=== PATIENT | male | born 1935 | race Caucasian/White ===

== ENCOUNTER 2018-12-06 19:17 | Emergency (ER) | payer MEDICARE, BC ==
--- NOTE | 2018-12-06 19:52 | EDM.PDOC ---
ED HPI GENERAL MEDICAL PROBLEM - General Chief Complaint: General Stated Complaint: fall, increased gabapentin administration Time Seen by Provider: 12/06/18 19:25 Source of Information: Reports: Patient, RN Notes Reviewed History Limitations: Reports: No Limitations - History of Present Illness INITIAL COMMENTS - FREE TEXT/NARRATIVE: Patient is a 83-year-old gentleman who was given 600 mg of gabapentin which he only takes normally 100 mg per day complaining of lightheadedness fell hitting the posterior aspect of the head therefore trauma to the head and patient is on a blood thinner. We ordered CT of the head which was negative Onset: Today Duration: Hour(s):, Constant Location: Reports: Head Severity: Mild Improves with: Reports: None Worsens with: Reports: None Context: Reports: Trauma Associated Symptoms: Reports: No Other Symptoms Lower Back Pain Score (Numeric/FACES): 3 - Related Data Allergies Allergy/AdvReac Type Severity Reaction Status Date / Time No Known Allergies Allergy Verified 12/06/18 20:02 Home Meds: Home Meds Abatacept [Orencia] 125 mg SQ Q7D 11/09/17 [History] Acetaminophen 1,000 mg PO TID PRN 11/09/17 [History] Apixaban [Eliquis] 2.5 mg PO BID 11/09/17 [History] Diclofen Sod/Kinesiology Tape [Diclo Gel 1%-Xrylix Sheet Kit] 1 each TP ASDIRECTED PRN 11/09/17 [History] Docusate Sodium [Colace] 100 mg PO BID 11/09/17 [History] Ferrous Sulfate 325 mg PO DAILY 11/09/17 [History] Finasteride 5 mg PO DAILY@1700 11/09/17 [History] Midodrine 5 mg PO TID PRN 11/09/17 [History] Multivit &Minerals/Ferrous Fum [Multivitamin Liquid] 30 ml PO DAILY 11/09/17 [ History] Omeprazole 20 mg PO DAILY 11/09/17 [History] Propylene Glycol/PEG 400/Pf [Systane 0.3-0.4% Eye Drops] 1 each EYERT BID [History] Tamsulosin [Tamsulosin 24 Hr] 0.8 mg PO DAILY@1700 11/09/17 [History] Tiotropium [Spiriva] 18 mcg INH DAILY 11/09/17 [History] Vitamin B Complex 1 each PO DAILY 11/09/17 [History] Carboxymethylcellulose/Lytes [[place]-Stir Oral [place]] 2 spray TOP ASDIRECTED PRN [History] Gabapentin [Neurontin] 100 mg PO TID 12/06/18 [History] Hydrocodone/Acetaminophen [Hydrocodon-Acetaminophen 5-325] 1 tab PO QID [History] Mirtazapine 30 mg PO DAILY@1700 12/06/18 [History] Polyethylene Glycol 3350 [MiraLAX] 17 gm PO DAILY 12/06/18 [History] Past Medical History HEENT History: Reports: Hard of Hearing Cardiovascular History: Reports: Afib, Aneurysm, High Cholesterol, PVD Respiratory History: Reports: COPD Genitourinary History: Reports: Renal Calculus Musculoskeletal History: Reports: Arthritis, Back Pain, Chronic, Other (See Below) Other Musculoskeletal History: DISC DEGENERATION Hematologic History: Reports: Anemia - Infectious Disease History Infectious Disease History: Reports: Chicken Pox, Influenza, Measles - Past Surgical History GI Surgical History: Reports: Colonoscopy Social & Family History - Caffeine Use Caffeine Use: Reports: Coffee ED ROS GENERAL - Review of Systems Review Of Systems: See Below Constitutional: Reports: Weakness HEENT: Reports: No Symptoms Respiratory: Reports: Cough Cardiovascular: Reports: Blood Pressure Problem, Lightheadedness Endocrine: Reports: No Symptoms GI/Abdominal: Reports: No Symptoms : Reports: No Symptoms Musculoskeletal: Reports: No Symptoms Skin: Reports: No Symptoms Neurological: Reports: No Symptoms Psychiatric: Reports: No Symptoms Hematologic/Lymphatic: Reports: No Symptoms Immunologic: Reports: No Symptoms ED EXAM, GENERAL - Physical Exam Exam: See Below Exam Limited By: No Limitations General Appearance: Alert, WD/WN, No Apparent Distress Ears: Normal External Exam, Normal Canal, Hearing Grossly Normal, Normal TMs Ear Exam: Bilateral Ear: Auricle Normal, Canal Normal, TM normal Nose: Normal Inspection, Normal Mucosa, No Blood Throat/Mouth: Normal Inspection, Normal Lips, Normal Teeth, Normal Gums, Normal Oropharynx, Normal Voice, No Airway Compromise Head: Atraumatic, Normocephalic Neck: Normal Inspection, Supple, Non-Tender, Full Range of Motion Respiratory/Chest: No Respiratory Distress, Lungs Clear, Normal Breath Sounds, No Accessory Muscle Use, Chest Non-Tender Cardiovascular: Normal Peripheral Pulses, Regular Rate, Rhythm, No Edema, No Gallop, No JVD, No Murmur, No Rub GI/Abdominal: Normal Bowel Sounds, Soft, Non-Tender, No Organomegaly, No Distention, No Abnormal Bruit, No Mass (Male) Exam: Deferred Rectal (Males) Exam: Deferred Back Exam: Normal Inspection, Full Range of Motion, NT Extremities: Normal Inspection, Normal Range of Motion, Non-Tender, Normal Capillary Refill, No Pedal Edema Neurological: Alert, Oriented, CN II-XII Intact, Normal Cognition, Normal Gait, Normal Reflexes, No Motor/Sensory Deficits Psychiatric: Normal Affect, Normal Mood Skin Exam: Warm, Dry, Intact, Normal Color, No Rash Lymphatic: No Adenopathy Course - Vital Signs Last Recorded V/S: Last Vital Signs Temp 98.4 F 12/06/18 19:21 Pulse 88 12/06/18 21:19 Resp 16 12/06/18 19:21 BP 139/92 H 12/06/18 21:19 Pulse Ox 94 L 12/06/18 20:50 - Orders/Labs/Meds Labs: Laboratory Tests 12/06/18 12/06/18 Range/Units 19:49 19:49 WBC 7.4 (4.0-10.2) K/uL RBC 3.63 L (4.33-5.41) M/uL Hgb 11.0 L (13.1-16.8) g/dL Hct 34.6 L (39.0-49.0) % MCV 95.3 (84.0-98.0) fL MCH 30.3 (28.2-33.3) pg MCHC 31.8 (31.7-36.0) g/dL RDW 14.3 H (11.2-14.1) % Plt Count 190 (150-350) K/uL Neut % (Auto) 72.6 (45.0-80.0) % Lymph % (Auto) 21.2 (10.0-50.0) % [place] % (Auto) 3.5 (2.0-14.0) % Eos % (Auto) 2.4 (0.0-5.0) % Baso % (Auto) 0.3 (0.0-2.0) % Neut # (Auto) 5.33 (1.40-7.00) K/uL Lymph # (Auto) 1.56 (0.50-3.50) K/uL [place] # (Auto) 0.26 (0.00-1.00) K/uL Eos # (Auto) 0.18 (0.00-0.50) K/uL Baso # (Auto) 0.02 (0.00-0.20) K/uL Sodium 147 H (136-145) mmol/L Potassium 3.7 (3.5-5.1) mmol/L Chloride 110 H (98-107) mmol/L Carbon Dioxide 29.1 (21.0-32.0) mmol/L BUN 31 H (7-18) mg/dL Creatinine 2.09 H (0.51-1.17) mg/dL Est Cr Clr Drug Dosing TNP Estimated GFR (MDRD) 31 mL/min Glucose 143 H (74-106) mg/dL Calcium 11.4 H (8.5-10.1) mg/dL Total Bilirubin 0.5 (0.2-1.0) mg/dL AST 55 H (15-37) U/L ALT 73 (12-78) U/L Alkaline Phosphatase 116 (46-116) IU/L Total Protein 6.4 (6.4-8.2) g/dL Albumin 2.8 L (3.4-5.0) g/dL Meds: Medications Discontinued Medications Generic Name Dose Route Start Last Admin Trade Name Freq PRN Reason Stop Dose Admin Sodium Chloride 1,000 mls @ 999 mls/hr 12/06/18 20:30 12/06/18 20:22 Normal Saline IV 999 mls/hr ASDIRECTED AJITH Administration Sodium Chloride 10 ml 12/06/18 20:17 12/06/18 20:26 Saline Flush FLUSH 10 ml ASDIRECTED PRN Administration Keep Vein Open Departure - Departure Time of Disposition: 20:21 Disposition: Home, Self-Care 01 Condition: Good Clinical Impression: Closed head injury Qualifiers: Encounter type: initial encounter Qualified Code(s): S09.90XA - Unspecified injury of head, initial encounter - Discharge Information *PRESCRIPTION DRUG MONITORING PROGRAM REVIEWED*: No *COPY OF PRESCRIPTION DRUG MONITORING REPORT IN PATIENT STEPHANI: No Referrals: Lizeth Prado PA [Primary Care Provider] - Forms: ED Department Discharge Care Plan Goals: Patient at this time will be evaluated with a CT of the head secondary to being on blood thinners and also trauma to the head. CT appeared negative at this time I will give him IV fluids and send him home with his regular medications
[2018-12-06 20:07] LABS: CHLORIDE,CL 110 mmol/L (98-107); SODIUM,NA 147 mmol/L (136-145)
[2018-12-06] MEDS ORDERED: Sodium Chloride 0.9% 10 ML Syringe FLUSH PRN (20:17)
[2018-12-06] MEDS ORDERED: Sodium Chloride 0.9% 1,000 ML IV SCH (20:30)
== END 2018-12-06 21:40 | disposition home or self-care (01) ==
LOC: LL.ED 19:17
DX: S09.90XA Unspecified injury of head, initial encounter (principal); I48.91 Unspecified atrial fibrillation; J44.9 Chronic obstructive pulmonary disease, unspecified; Z79.01 Long term (current) use of anticoagulants; Z79.899 Other long term (current) drug therapy; W19.XXXA Unspecified fall, initial encounter
CPT/HCPCS: 36415; 70450; 80053; 85025; 96360; 99285-25; J7030

== ENCOUNTER 2020-03-23 17:04 | Observation (INO) | payer MEDICARE, BC ==
[2020-03-23] MEDS ORDERED: Ondansetron 4 MG/2 ML SDV IVPUSH ONE (17:23)
[2020-03-23] MEDS: Sodium Chloride 0.9% 10 ML Syringe FLUSH PRN ×3 (17:28→19:40)
[2020-03-23 17:46] LABS: CHLORIDE,CL 105 mmol/L (98-107); SODIUM,NA 142 mmol/L (136-145)
[2020-03-23] MEDS ORDERED: Morphine 2 MG/ML SYRINGE IVPUSH ONE (18:01)
[2020-03-23] MEDS ORDERED: Iopamidol 612 MG/ML 100 ML Bottle ONE (18:01)
[2020-03-23] MEDS ORDERED: Sodium Chloride 0.9% 1,000 ML IV ONE (18:02)
--- NOTE | 2020-03-23 18:08 | EDM.PDOC ---
ED HPI GENERAL MEDICAL PROBLEM - General Chief Complaint: Abdominal Pain Stated Complaint: abdominal pain Time Seen by Provider: 03/23/20 17:40 Source of Information: Reports: Patient History Limitations: Reports: No Limitations - History of Present Illness INITIAL COMMENTS - FREE TEXT/NARRATIVE: Patient comes from [facility] with complaint of RLQ abdominal pain. Several episodes emesis. Feeling cold/some chills. No fever. No bowel changes. Hx of constipation in past. Has had the pain before in same area but says "not as bed as today". Ranks pain as 8-9/10. Has slow stream when urinating but this is not new. No acute urinary changes reported. Denies HEENT/Resp/CV changes. No headache or body aches. No neuro changes. Hx of AAA and iliac aneurysm. Routine Covid test performed yesterday. No results yet available. abdomen Pain Score (Numeric/FACES): 9 - Related Data Allergies Allergy/AdvReac Type Severity Reaction Status Date / Time No Known Allergies Allergy Verified 03/23/20 17:46 Home Meds: Home Meds Abatacept [Orencia] 125 mg SQ Q7D 11/09/17 [History] Acetaminophen 1,000 mg PO TID PRN 11/09/17 [History] Apixaban [Eliquis] 2.5 mg PO BID 11/09/17 [History] Diclofenac/Kinesiology Tape [Diclo Gel 1%-Xrylix Sheet Kit] 1 each TP ASDIRECTED PRN 11/09/17 [History] Docusate Sodium [Colace] 100 mg PO BID 11/09/17 [History] Ferrous Sulfate 325 mg PO DAILY@12 11/09/17 [History] Finasteride 5 mg PO DAILY@169911/09/17 [History] Omeprazole 20 mg PO DAILY 11/09/17 [History] Propylene Glycol/PEG 400/Pf [Systane 0.3-0.4% Eye Drops] 1 each EYEBOTH TID 11/09/17 [History] Tamsulosin [Tamsulosin 24 Hr] 0.8 mg PO DAILY@169911/09/17 [History] Tiotropium [Spiriva] 18 mcg INH DAILY 11/09/17 [History] Vitamin B Complex 1 each PO DAILY 11/09/17 [History] Carboxymethylcellulose/Lytes [[place]-Stir Oral [place]] 2 spray TOP ASDIRECTED PRN 12/06/18 [History] Gabapentin [Neurontin] 100 mg PO DAILY 12/06/18 [History] Hydrocodone/Acetaminophen [Hydrocodon-Acetaminophen 5-325] 1 tab PO Q6HR PRN 12/06/18 [History] Buprenorphine [Butrans] 1 each TD WEEKLY 03/23/20 [History] Hydrocodone/Acetaminophen [Hydrocodone-Acetamin 5-325 mg] 1 each PO BID 03/23/20 [History] Mirtazapine [Remeron] 15 mg PO DAILY 03/23/20 [History] Multivitamin [Multi-Vitamin Daily] 1 each PO DAILY 03/23/20 [History] Sertraline [Zoloft] 100 mg PO DAILY 03/23/20 [History] Past Medical History HEENT History: Reports: Hard of Hearing 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 Abdominal aortic aneursym without rupture. Aneursym of iliac artery. Hypotension Respiratory History: Reports: COPD Gastrointestinal History: Reports: Chronic Constipation, Colon Polyp, GERD, Other (See Below) Other Gastrointestinal History: dysphagia. 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 Genitourinary History: Reports: Renal Calculus Other Genitourinary History: Overactive bladder Musculoskeletal History: Reports: Arthritis, Back Pain, Chronic, Other (See Below) Other Musculoskeletal History: DISC DEGENERATION Psychiatric History: Reports: Other (See Below) Other Psychiatric History: single episode major depressive disorder Endocrine/Metabolic History: Reports: Hypothyroidism Hematologic History: Reports: Anemia Dermatologic History: Reports: Other (See Below) Other Dermatologic History: Dermatitis - Infectious Disease History Infectious Disease History: Reports: Chicken Pox, Influenza, Measles - Past Surgical History GI Surgical History: Reports: Colonoscopy Social & Family History - Tobacco Use Tobacco Use Status *Q: Former Tobacco User Years of Tobacco use: 50 Packs/Tins Daily: 1 Used Tobacco, but Quit: Yes Month/Year Tobacco Last Used: unsure Second Hand Smoke Exposure: No - Caffeine Use Caffeine Use: Reports: None - Alcohol Use Days Per Week of Alcohol Use: 7 Number of Drinks Per Day: 2 Total Drinks Per Week: 14 - Recreational Drug Use Recreational Drug Use: No ED ROS GENERAL - Review of Systems Review Of Systems: Comprehensive ROS is negative, except as noted in HPI. ED EXAM, GENERAL - Physical Exam Exam: See Below Exam Limited By: No Limitations General Appearance: Alert, WD/WN, No Apparent Distress Eye Exam: Bilateral Eye: EOMI, PERRL Ears: Hearing Loss Nose: No: Nasal Deformity, Nasal Swelling, Nasal Drainage Throat/Mouth: Normal Lips, Normal Voice, No Airway Compromise Head: Atraumatic, Normocephalic Neck: Supple Respiratory/Chest: No Respiratory Distress, Lungs Clear, No Accessory Muscle Use, Chest Non-Tender, Decreased Breath Sounds (throughout) Cardiovascular: No Edema, Irregularly Irregular GI/Abdominal: Soft, No Distention, No Abnormal Bruit, Other (some tenderness over entire abdomen, more focused discomfort RLQ). No: Guarding, Rigid, Rebound (Male) Exam: Deferred Rectal (Males) Exam: Deferred Back Exam: No: Muscle Spasm Extremities: Non-Tender, No Pedal Edema, Normal Capillary Refill Neurological: Alert, Oriented, Other (equal tone/strength bilat) Psychiatric: Normal Affect, Normal Mood Skin Exam: Warm, Dry, Intact, Normal Color Course - Vital Signs Last Recorded V/S: Last Vital Signs Temp 36.7 C 03/23/20 17:06 Pulse 105 H 03/23/20 19:35 Resp 23 H 03/23/20 19:35 BP 140/87 03/23/20 19:35 Pulse Ox 97 03/23/20 19:35 - Orders/Labs/Meds Orders: Active Orders 24 hr Category Date Time Status Abdomen Pelvis w Cont [CT] Stat Exams 03/23/20 18:01 Taken Abdomen Series w Chest 1V [CR] Stat Exams 03/23/20 17:18 Taken Sodium Chloride 0.9% [Normal Saline] 1,000 ml Med 03/23/20 18:02 Active IV .BOLUS Sodium Chloride 0.9% [Saline Flush] Med 03/23/20 17:24 Active 10 ml FLUSH ASDIRECTED PRN Saline Lock Insert [OM.PC] Routine Oth 03/23/20 17:24 Ordered Medication Orders Sodium Chloride (Normal Saline) 1,000 mls @ 250 mls/hr IV .BOLUS ONE Stop: 03/23/20 22:01 Last Admin: 03/23/20 18:48 Dose: 250 mls/hr Documented by: SAMIRA Sodium Chloride (Saline Flush) 10 ml FLUSH ASDIRECTED PRN PRN Reason: Keep Vein Open Last Admin: 03/23/20 19:40 Dose: 10 ml Documented by: Admin: 03/23/20 18:53 Dose: 10 ml Documented by: Admin: 03/23/20 17:28 Dose: 10 ml Documented by: SAMIRA Labs: Laboratory Tests 03/23/20 03/23/20 03/23/20 Range/Units 17:15 17:15 17:15 WBC 13.8 H (4.0-10.2) K/uL RBC 4.07 L (4.33-5.41) M/uL Hgb 12.1 L (13.1-16.8) g/dL Hct 37.6 L (39.0-49.0) % MCV 92.4 D (84.0-98.0) fL MCH 29.7 (28.2-33.3) pg MCHC 32.2 (31.7-36.0) g/dL RDW 14.3 H (11.2-14.1) % Plt Count 190 (150-350) K/uL Neut % (Auto) 90.6 H (45.0-80.0) % Lymph % (Auto) 5.5 L (10.0-50.0) % [place] % (Auto) 3.9 (2.0-14.0) % Eos % (Auto) 0.0 (0.0-5.0) % Baso % (Auto) 0.0 (0.0-2.0) % Neut # (Auto) 12.48 H (1.40-7.00) K/uL Lymph # (Auto) 0.76 (0.50-3.50) K/uL [place] # (Auto) 0.54 (0.00-1.00) K/uL Eos # (Auto) 0.00 (0.00-0.50) K/uL Baso # (Auto) 0.00 (0.00-0.20) K/uL Sodium 142 (136-145) mmol/L Potassium 3.8 (3.5-5.1) mmol/L Chloride 105 (98-107) mmol/L Carbon Dioxide 29.4 (21.0-32.0) mmol/L BUN 19 H (7-18) mg/dL Creatinine 1.08 (0.51-1.17) mg/dL Est Cr Clr Drug Dosing 37.07 mL/min Estimated GFR (MDRD) > 60 mL/min Glucose 171 H (74-106) mg/dL Lactic Acid 1.3 (0.4-2.0) mmol/L Calcium 9.0 (8.5-10.1) mg/dL Magnesium 1.9 (1.8-2.4) mg/dL Total Bilirubin 0.7 (0.2-1.0) mg/dL AST 20 (15-37) U/L ALT 16 (12-78) U/L Alkaline Phosphatase 104 (46-116) IU/L Total Protein 6.6 (6.4-8.2) g/dL Albumin 3.0 L (3.4-5.0) g/dL Amylase 46 (25-115) U/L Lipase 31 L (73-393) U/L Specimen Type Urine Color Urine Appearance Urine pH (5.0-9.0) Ur Specific [place] (1.005-1.030) Urine Protein (NEGATIVE) mg/dL Urine Glucose (UA) (NEGATIVE) mg/dL Urine Ketones (NEGATIVE) mg/dL Urine Occult Blood (NEGATIVE) Urine Nitrite (NEGATIVE) Urine Bilirubin (NEGATIVE) Urine Urobilinogen (0.2-1.0) E.U./dL Ur Leukocyte Esterase (NEGATIVE) U Hyaline Cast (Auto) Urine RBC /HPF Urine WBC /HPF Urine Bacteria (NONE TO FEW) /HPF 03/23/20 Range/Units 19:12 WBC (4.0-10.2) K/uL RBC (4.33-5.41) M/uL Hgb (13.1-16.8) g/dL Hct (39.0-49.0) % MCV (84.0-98.0) fL MCH (28.2-33.3) pg MCHC (31.7-36.0) g/dL RDW (11.2-14.1) % Plt Count (150-350) K/uL Neut % (Auto) (45.0-80.0) % Lymph % (Auto) (10.0-50.0) % [place] % (Auto) (2.0-14.0) % Eos % (Auto) (0.0-5.0) % Baso % (Auto) (0.0-2.0) % Neut # (Auto) (1.40-7.00) K/uL Lymph # (Auto) (0.50-3.50) K/uL [place] # (Auto) (0.00-1.00) K/uL Eos # (Auto) (0.00-0.50) K/uL Baso # (Auto) (0.00-0.20) K/uL Sodium (136-145) mmol/L Potassium (3.5-5.1) mmol/L Chloride (98-107) mmol/L Carbon Dioxide (21.0-32.0) mmol/L BUN (7-18) mg/dL Creatinine (0.51-1.17) mg/dL Est Cr Clr Drug Dosing mL/min Estimated GFR (MDRD) mL/min Glucose (74-106) mg/dL Lactic Acid (0.4-2.0) mmol/L Calcium (8.5-10.1) mg/dL Magnesium (1.8-2.4) mg/dL Total Bilirubin (0.2-1.0) mg/dL AST (15-37) U/L ALT (12-78) U/L Alkaline Phosphatase (46-116) IU/L Total Protein (6.4-8.2) g/dL Albumin (3.4-5.0) g/dL Amylase (25-115) U/L Lipase (73-393) U/L Specimen Type Urinvoid Urine Color Dark yellow Urine Appearance Slightly cloudy Urine pH 7.0 (5.0-9.0) Ur Specific [place] 1.015 (1.005-1.030) Urine Protein 100 H (NEGATIVE) mg/dL Urine Glucose (UA) Negative (NEGATIVE) mg/dL Urine Ketones Trace H (NEGATIVE) mg/dL Urine Occult Blood Large H (NEGATIVE) Urine Nitrite Negative (NEGATIVE) Urine Bilirubin Negative (NEGATIVE) Urine Urobilinogen 2.0 H (0.2-1.0) E.U./dL Ur Leukocyte Esterase Negative (NEGATIVE) U Hyaline Cast (Auto) Rare Urine RBC >100 H /HPF Urine WBC Not seen /HPF Urine Bacteria Not seen (NONE TO FEW) /HPF Meds: Medications Generic Name Dose Route Start Last Admin Trade Name Leisa PRN Reason Stop Dose Admin Sodium Chloride 1,000 mls @ 250 mls/hr 03/23/20 18:02 03/23/20 18:48 Normal Saline IV 03/23/20 22:01 250 mls/hr .BOLUS ONE Administration Sodium Chloride 10 ml 03/23/20 17:24 03/23/20 19:40 Saline Flush FLUSH 10 ml ASDIRECTED PRN Administration Keep Vein Open Discontinued Medications Generic Name Dose Route Start Last Admin Trade Name Leisa PRN Reason Stop Dose Admin Iopamidol Confirm 03/23/20 18:01 03/23/20 19:00 Isovue-300 (61%) Administered 03/23/20 18:02 100 ml Dose Administration 100 ml .ROUTE .STK-MED ONE Morphine Sulfate 2 mg 03/23/20 18:01 03/23/20 18:43 Morphine IVPUSH 03/23/20 18:02 2 mg ONETIME ONE Administration Morphine Sulfate 4 mg 03/23/20 19:29 03/23/20 19:38 Morphine IVPUSH 03/23/20 19:30 4 mg ONETIME ONE Administration Ondansetron HCl 4 mg 03/23/20 17:23 03/23/20 17:26 Zofran IVPUSH 03/23/20 17:24 4 mg ONETIME ONE Administration - Radiology Interpretation Free Text/Narrative:: No free air in abdomen. No focal pneumonia/consolidation in lungs. No evidence obstruction. Increased stool RLQ CT Results Date: 03/23/20 CT Results Time: 19:50 (distended stomach, narrowing of lumen of duodenum. Radiology wonders if underlying duodenitis or ulcer disease present in duodenum. Gallstones present but no evidence cholecystitis. Nonobstructing stones bilat kidneys. Small AAA and mild dilatation of right common iliac artery. ) - Re-Assessments/Exams Free Text/Narrative Re-Assessment/Exam: 03/23/20 18:09 mild elevation in WBC. Glucose elevated. Chem overall unremarkable otherwise. Unable to void for UA as of yet. No evidence of acute abdomen on plain films. Given history of previous pain in same area/worsening overall pain will order CT of abdomen and pelvis for further evaluation. NS and MS/Zofran ordered. 03/23/20 20:31 Hematuria noted but no elevated WBCs in UA. CT results as noted above. Patient rechecked after Radiology called with results and patient did not complain of any significant discomfort with palpation of epigastric area/RUQ. Continues to have more pain in RLQ. Only finding there was some increased stool on plain films/CT. He did say that pain increases after eating, which is also consistent with constipation. Patient does have some tachycardia noted with rate around 110-120. [facility] says that he usually runs pulse rates under 100. He does have history of Afib. After receiving MS O2 sats decreased and O2 via NC initiated. Uncertain if patient's current complaints can be completely be explained by constipation. Cannot rule out viral syndrome causing GI upset/nausea/emesis/abd discomfort. Patient also appears to have an ongoing issue with apparent duodenitis vs ulcer given the CT findings with associated stomach distension. Will admit observation and see if RLQ pain improves s/p Mag Citrate. Will also try to schedule RUQ US study tomorrow for better evaluation of GB and surrounding area. H.Pylori testing requested. Protonix IV. May need referral to GI for further evaluation. Patient agreeable with plan. Departure - Departure Time of Disposition: 20:48 Disposition: Refer to Observation Condition: Good Clinical Impression: Right lower quadrant abdominal pain - Discharge Information *PRESCRIPTION DRUG MONITORING PROGRAM REVIEWED*: Not Applicable *COPY OF PRESCRIPTION DRUG MONITORING REPORT IN PATIENT STEPHANI: Not Applicable Sepsis Event Note (ED) - Evaluation Sepsis Screening Result: Sepsis Risk - Focused Exam Vital Signs: Vital Signs Temp Pulse Resp BP Pulse Ox 03/23/20 19:35 105 H 23 H 140/87 97 03/23/20 18:35 104 H 24 H 143/66 H 92 L 03/23/20 18:02 114 H 24 H 143/50 H 92 L 03/23/20 17:47 114 H 27 H 143/61 H 91 L 03/23/20 17:32 111 H 21 H 156/91 H 91 L 03/23/20 17:17 87 21 H 148/80 H 90 L 03/23/20 17:06 36.7 C 114 H 20 140/78 92 L 03/23/20 17:04 93 20 158/77 H 93 L - Problem List & Annotations (1) Right lower quadrant abdominal pain SNOMED Code(s): 977591994 Code(s): R10.31 - RIGHT LOWER QUADRANT PAIN Status: Acute Priority: High Current Visit: Yes Annotation/Comment:: Has had this same pain on/off before. This episode most severe. Pain worsens after eating. Only finding on CT and plain films in area was increased stool. Patient has history of chronic constipation. Note incidental findings of duodenitis vs ulcer, duodenal narrowing with gastric distension, along with gallbladder stones on the CT. Patient denies RUQ discomfort. US study requested for RUQ tomorrow. H.Pylori testing requested. Will see if any change in pain complaint s/p Mag Citrate. Anticipate patient will need close follow up by PCP and possible referral to GI given the above changes. (2) Chronic constipation SNOMED Code(s): 855746626 Code(s): K59.09 - OTHER CONSTIPATION Status: Chronic Priority: High Current Visit: Yes Annotation/Comment:: RLQ pain may be related to patient's chronic constipation. Chronic opiod use. Will see if any change in pain s/p Mag Citrate. (3) History of kidney stones SNOMED Code(s): 416398675 Code(s): Z87.442 - PERSONAL HISTORY OF URINARY CALCULI Status: Chronic Priority: Low Current Visit: Yes Annotation/Comment:: Patient has nonobstructing stones in kidney per CT. Hematuria noted with UA. No ureteral stones noted on scan. (4) Afib SNOMED Code(s): 87384508 Code(s): I48.91 - UNSPECIFIED ATRIAL FIBRILLATION Status: Chronic Priority: Medium Current Visit: Yes Annotation/Comment:: Hx Afib. On Eliquis. Afib with RVR noted on monitor tonight. Patient denies chest pain/sob/palpitations (5) Aneurysm SNOMED Code(s): 439927391 Code(s): I72.9 - ANEURYSM OF UNSPECIFIED SITE Status: Chronic Priority: Low Current Visit: No Annotation/Comment:: History small AAA and right common iliac artery. Stable on CT (6) PVD (peripheral vascular disease) SNOMED Code(s): 655578063 Code(s): I73.9 - PERIPHERAL VASCULAR DISEASE, UNSPECIFIED Status: Chronic Priority: Low Current Visit: No (7) COPD (chronic obstructive pulmonary disease) SNOMED Code(s): 04547858 Code(s): J44.9 - CHRONIC OBSTRUCTIVE PULMONARY DISEASE, UNSPECIFIED Status: Chronic Priority: Low Current Visit: No Annotation/Comment:: stable per history (8) GERD (gastroesophageal reflux disease) SNOMED Code(s): 411934478 Code(s): K21.9 - GASTRO-ESOPHAGEAL REFLUX DISEASE WITHOUT ESOPHAGITIS Status: Chronic Priority: Low Current Visit: No Annotation/Comment:: stable per history Qualifiers: Esophagitis presence: esophagitis presence not specified Qualified Code(s): K21.9 - Gastro-esophageal reflux disease without esophagitis (9) Dysphagia SNOMED Code(s): 38029552, 438073553 Code(s): R13.10 - DYSPHAGIA, UNSPECIFIED Status: Chronic Priority: Low Current Visit: No Annotation/Comment:: stable per history Qualifiers: Dysphagia type: unspecified Qualified Code(s): R13.10 - Dysphagia, unspecified (10) Chronic back pain SNOMED Code(s): 651867621 Code(s): M54.9 - DORSALGIA, UNSPECIFIED; G89.29 - OTHER CHRONIC PAIN Status: Chronic Priority: Low Current Visit: Yes Annotation/Comment:: Chronic back pain/DDD/arthritis. Daily opiods/Gabapentin/topical med for pain control. Qualifiers: Back pain location: back pain in unspecified location Back pain laterality: unspecified Qualified Code(s): M54.9 - Dorsalgia, unspecified; G89.29 - Other chronic pain - Problem List Review Problem List Initiated/Reviewed/Updated: Yes - My Orders Last 24 Hours: My Active Orders 03/23/20 17:18 Abdomen Series w Chest 1V [CR] Stat 03/23/20 17:24 Sodium Chloride 0.9% [Saline Flush] 10 ml FLUSH ASDIRECTED PRN Saline Lock Insert [OM.PC] Routine 03/23/20 18:01 Abdomen Pelvis w Cont [CT] Stat 03/23/20 18:02 Sodium Chloride 0.9% [Normal Saline] 1,000 ml IV .BOLUS - Assessment/Plan Admission H&P: Please use this note as an admission H&P Last 24 Hours: My Active Orders 03/23/20 17:18 Abdomen Series w Chest 1V [CR] Stat 03/23/20 17:24 Sodium Chloride 0.9% [Saline Flush] 10 ml FLUSH ASDIRECTED PRN Saline Lock Insert [OM.PC] Routine 03/23/20 18:01 Abdomen Pelvis w Cont [CT] Stat 03/23/20 18:02 Sodium Chloride 0.9% [Normal Saline] 1,000 ml IV .BOLUS Assessment:: as above. STable and suitable for general supervision Plan: as above. to assume care in AM.
[2020-03-23] MEDS ORDERED: Morphine 4 MG/ML Syringe IVPUSH ONE (19:29)
[2020-03-23] MEDS ORDERED: Diltiazem 120 MG Cap.CD PO ONE (20:43)
[2020-03-23] MEDS ORDERED: Pantoprazole 40 MG Vial IVPUSH SCH (21:00)
[2020-03-23] MEDS ORDERED: Ondansetron 4 MG/2 ML SDV IVPUSH PRN (21:07)
[2020-03-23] MEDS ORDERED: [UNRECOGNIZED DRUG - MIXTURE] TP PRN (21:15)
[2020-03-23] MEDS ORDERED: BUPRENORPHINE TD SCH (21:15)
[2020-03-23] MEDS ORDERED: Magnesium Citrate Solution 296 ML Bottle PO ONE (21:15)
[2020-03-23] MEDS ORDERED: Acetaminophen 500 MG Tab PO PRN (21:15)
[2020-03-23] MEDS ORDERED: Acetaminophen/HYDROcodone 325-5 MG Tab PO PRN (21:15)
[2020-03-23] MEDS ORDERED: Sodium Chloride 0.9% 1,000 ML IV SCH (21:15)
[2020-03-24 08:00] LABS: CHLORIDE,CL 108 mmol/L (98-107); SODIUM,NA 144 mmol/L (136-145)
[2020-03-24] MEDS ORDERED: Docusate Sodium 100 MG Cap PO SCH (08:00)
[2020-03-24] MEDS ORDERED: Gabapentin 100 MG Cap PO SCH (08:00)
[2020-03-24] MEDS ORDERED: Mirtazapine 15 MG Tab PO SCH (08:00)
[2020-03-24] MEDS ORDERED: Tiotropium Inhaler 18 MCG Inhalation Powder Cap Kit of 5 INH SCH (08:00)
[2020-03-24] MEDS ORDERED: Acetaminophen/HYDROcodone 325-5 MG Tab PO SCH (08:00)
[2020-03-24] MEDS ORDERED: Sertraline 50 MG Tab PO SCH (08:00)
[2020-03-24] MEDS ORDERED: Apixaban 2.5 MG Tab PO SCH (08:00)
--- NOTE | 2020-03-24 08:58 | PCM.DCSUM1 ---
Discharge Summary - Hospital Course Brief History: Patient admitted for observation after presenting to ER with right lower quadrant pain. History of similar RLQ pain previously, but not as severe. Diagnosis: Stroke: No - Discharge Data Discharge Date: 03/24/20 Discharge Disposition: DC/Tfer to Acute Hospital 02 Condition: Good - Referral to Home Health Primary Care Physician: PCP None - Discharge Diagnosis/Problem(s) (1) Right lower quadrant abdominal pain SNOMED Code(s): 290132710 ICD Code: R10.31 - RIGHT LOWER QUADRANT PAIN Status: Acute Priority: High Current Visit: Yes Problem Details: Has had this same pain on/off before. This episode most severe. Pain worsens after eating. Only finding on CT and plain films in RLQ area was increased stool. Patient has history of chronic constipation. Note incidental findings of duodenitis vs ulcer, duodenal narrowing with gastric distension, along with gallbladder stones on the CT. Patient denies RUQ discomfort. US study requested for RUQ this morning. H.Pylori testing requested. Admitted observation. Given Mag Citrate. (2) Duodenal stricture SNOMED Code(s): 11157223 ICD Code: K31.5 - OBSTRUCTION OF DUODENUM Status: Acute Priority: High Current Visit: Yes Problem Details: Stricture noted on CT. Gastric distension. (3) Gallstones SNOMED Code(s): 703563635 ICD Code: K80.20 - CALCULUS OF GALLBLADDER W/O CHOLECYSTITIS W/O OBSTRUCTION Status: Chronic Priority: Medium Current Visit: Yes Problem Details: gallstones noted on CT. No obstruction or evidence cholecystitis per Radiology (4) Chronic constipation SNOMED Code(s): 404435635 ICD Code: K59.09 - OTHER CONSTIPATION Status: Chronic Priority: High Current Visit: Yes Problem Details: RLQ pain may be related to patient's chronic constipation. Chronic opiod use. (5) History of kidney stones SNOMED Code(s): 312961810 ICD Code: Z87.442 - PERSONAL HISTORY OF URINARY CALCULI Status: Chronic Priority: Low Current Visit: Yes Problem Details: Patient has nonobstructing stones in kidney per CT. Hematuria noted with UA. No ureteral stones noted on scan. (6) Afib SNOMED Code(s): 08050746 ICD Code: I48.91 - UNSPECIFIED ATRIAL FIBRILLATION Status: Chronic Priority: Medium Current Visit: Yes Problem Details: Hx Afib. On Eliquis. Afib with RVR noted on monitor tonight. Patient denies chest pain/sob/palpitations. 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 Stable on CT (8) PVD (peripheral vascular disease) SNOMED Code(s): 033814978 ICD Code: I73.9 - PERIPHERAL VASCULAR DISEASE, UNSPECIFIED Status: Chronic Priority: Low Current Visit: No (9) COPD (chronic obstructive pulmonary disease) SNOMED Code(s): 42497624 ICD Code: J44.9 - CHRONIC OBSTRUCTIVE PULMONARY DISEASE, UNSPECIFIED Status: Chronic Priority: Low Current Visit: No Problem Details: stable per history (10) GERD (gastroesophageal reflux disease) SNOMED Code(s): 786911769 ICD Code: K21.9 - GASTRO-ESOPHAGEAL REFLUX DISEASE WITHOUT ESOPHAGITIS Status: Chronic Priority: Low Current Visit: No Problem Details: stable per history Qualifiers: Esophagitis presence: esophagitis presence not specified Qualified Code(s): K21.9 - Gastro-esophageal reflux disease without esophagitis (11) Dysphagia SNOMED Code(s): 08483205, 110065762 ICD Code: R13.10 - DYSPHAGIA, UNSPECIFIED Status: Chronic Priority: Low Current Visit: No Problem Details: stable per history Qualifiers: Dysphagia type: unspecified Qualified Code(s): R13.10 - Dysphagia, unspecified (12) Chronic back pain SNOMED Code(s): 547663660 ICD Code: M54.9 - DORSALGIA, UNSPECIFIED; G89.29 - OTHER CHRONIC PAIN Status: Chronic Priority: Low Current Visit: Yes Problem Details: Chronic back pain/DDD/arthritis. Daily opiods/Gabapentin/topical med for pain control. Qualifiers: Back pain location: back pain in unspecified location Back pain laterality: unspecified Qualified Code(s): M54.9 - Dorsalgia, unspecified; G89.29 - Other chronic pain - Patient Summary/Data Hospital Course: Patient received Mag Citrate. No significant bowel movement as of yet. Pain comes/goes per patient but is better than last night. Noted to continue to have elevated heart rate overnight. Usually runs 70-90 per [facility]. Elevation is unusual for patient. Troponin and EKG were added to morning labs. Patient denied chest pain/anginal symptoms/SOB throughout stay. EKG this morning showed AFib but no acute ST changes suggestive of acute ischemia. Troponin however was elevated at 0.1 Given the elevated troponin, continued intermittent RLQ pain, and CT findings of stomach distension/duodenal changes, it was decided to transfer patient to [facility] in [place] where he will have access to GI and Cardiology. - Discharge Plan *PRESCRIPTION DRUG MONITORING PROGRAM REVIEWED*: Not Applicable *COPY OF PRESCRIPTION DRUG MONITORING REPORT IN PATIENT STEPHANI: Not Applicable Home Medications: Home Meds Abatacept [Orencia] 125 mg SQ Q7D 11/09/17 [History] Acetaminophen 1,000 mg PO TID PRN 11/09/17 [History] Apixaban [Eliquis] 2.5 mg PO BID 11/09/17 [History] Diclofenac/Kinesiology Tape [Diclo Gel 1%-Xrylix Sheet Kit] 1 each TP ASDIRECTED PRN 11/09/17 [History] Docusate Sodium [Colace] 100 mg PO BID 11/09/17 [History] Ferrous Sulfate 325 mg PO DAILY@12 11/09/17 [History] Finasteride 5 mg PO DAILY@1700 11/09/17 [History] Omeprazole 20 mg PO DAILY 11/09/17 [History] Propylene Glycol/PEG 400/Pf [Systane 0.3-0.4% Eye Drops] 1 each EYEBOTH TID 11/09/17 [History] Tamsulosin [Tamsulosin 24 Hr] 0.8 mg PO DAILY@1700 11/09/17 [History] Tiotropium [Spiriva] 18 mcg INH DAILY 11/09/17 [History] Vitamin B Complex 1 each PO DAILY 11/09/17 [History] Carboxymethylcellulose/Lytes [[place]-Stir Oral [place]] 2 spray TOP ASDIRECTED PRN 12/06/18 [History] Gabapentin [Neurontin] 100 mg PO DAILY 12/06/18 [History] Hydrocodone/Acetaminophen [Hydrocodon-Acetaminophen 5-325] 1 tab PO Q6HR PRN 12/06/18 [History] Buprenorphine [Butrans] 1 each TD WEEKLY 03/23/20 [History] Hydrocodone/Acetaminophen [Hydrocodone-Acetamin 5-325 mg] 1 each PO BID 03/23/20 [History] Mirtazapine [Remeron] 15 mg PO DAILY 03/23/20 [History] Multivitamin [Multi-Vitamin Daily] 1 each PO DAILY 03/23/20 [History] Sertraline [Zoloft] 100 mg PO DAILY 03/23/20 [History] Referrals: PCP,None [Primary Care Provider] - - Discharge Summary/Plan Comment DC Time >30 min.: Yes (Waiting for bed confirmation) - Patient Data Vitals - Most Recent: Last Vital Signs Temp 36.4 C 03/24/20 07:28 Pulse 102 H 03/24/20 07:28 Resp 14 03/24/20 07:28 BP 154/75 H 03/24/20 07:28 Pulse Ox 95 03/24/20 07:28 Weight - Most Recent: 51.483 kg I&O - Last 24 hours: Intake & Output 03/23/20 03/24/20 03/24/20 22:59 06:59 14:59 Intake Total 1000 Output Total 50 Balance -50 1000 Lab Results - Last 24 hrs: Laboratory Results - last 24 hr 03/23/20 03/23/20 03/23/20 Range/Units 17:15 17:15 17:15 WBC 13.8 H (4.0-10.2) K/uL RBC 4.07 L (4.33-5.41) M/uL Hgb 12.1 L (13.1-16.8) g/dL Hct 37.6 L (39.0-49.0) % MCV 92.4 D (84.0-98.0) fL MCH 29.7 (28.2-33.3) pg MCHC 32.2 (31.7-36.0) g/dL RDW 14.3 H (11.2-14.1) % Plt Count 190 (150-350) K/uL Neut % (Auto) 90.6 H (45.0-80.0) % Lymph % (Auto) 5.5 L (10.0-50.0) % [place] % (Auto) 3.9 (2.0-14.0) % Eos % (Auto) 0.0 (0.0-5.0) % Baso % (Auto) 0.0 (0.0-2.0) % Neut # (Auto) 12.48 H (1.40-7.00) K/uL Lymph # (Auto) 0.76 (0.50-3.50) K/uL [place] # (Auto) 0.54 (0.00-1.00) K/uL Eos # (Auto) 0.00 (0.00-0.50) K/uL Baso # (Auto) 0.00 (0.00-0.20) K/uL Sodium 142 (136-145) mmol/L Potassium 3.8 (3.5-5.1) mmol/L Chloride 105 (98-107) mmol/L Carbon Dioxide 29.4 (21.0-32.0) mmol/L BUN 19 H (7-18) mg/dL Creatinine 1.08 (0.51-1.17) mg/dL Est Cr Clr Drug Dosing 37.07 mL/min Estimated GFR (MDRD) > 60 mL/min Glucose 171 H (74-106) mg/dL Lactic Acid 1.3 (0.4-2.0) mmol/L Calcium 9.0 (8.5-10.1) mg/dL Magnesium 1.9 (1.8-2.4) mg/dL Total Bilirubin 0.7 (0.2-1.0) mg/dL AST 20 (15-37) U/L ALT 16 (12-78) U/L Alkaline Phosphatase 104 (46-116) IU/L Troponin I (0.000-0.056) ng/mL Total Protein 6.6 (6.4-8.2) g/dL Albumin 3.0 L (3.4-5.0) g/dL Amylase 46 (25-115) U/L Lipase 31 L (73-393) U/L Specimen Type Urine Color Urine Appearance Urine pH (5.0-9.0) Ur Specific [place] (1.005-1.030) Urine Protein (NEGATIVE) mg/dL Urine Glucose (UA) (NEGATIVE) mg/dL Urine Ketones (NEGATIVE) mg/dL Urine Occult Blood (NEGATIVE) Urine Nitrite (NEGATIVE) Urine Bilirubin (NEGATIVE) Urine Urobilinogen (0.2-1.0) E.U./dL Ur Leukocyte Esterase (NEGATIVE) U Hyaline Cast (Auto) Urine RBC /HPF Urine WBC /HPF Urine Bacteria (NONE TO FEW) /HPF 01/20/21 01/21/21 01/21/21 Range/Units 19:12 07:30 07:30 WBC 11.4 H (4.0-10.2) K/uL RBC 4.26 L (4.33-5.41) M/uL Hgb 12.7 L (13.1-16.8) g/dL Hct 39.6 (39.0-49.0) % MCV 93.0 (84.0-98.0) fL MCH 29.8 (28.2-33.3) pg MCHC 32.1 (31.7-36.0) g/dL RDW 14.9 H (11.2-14.1) % Plt Count 170 (150-350) K/uL Neut % (Auto) 83.2 H (45.0-80.0) % Lymph % (Auto) 12.3 (10.0-50.0) % [place] % (Auto) 4.4 (2.0-14.0) % Eos % (Auto) 0.0 (0.0-5.0) % Baso % (Auto) 0.1 (0.0-2.0) % Neut # (Auto) 9.45 H (1.40-7.00) K/uL Lymph # (Auto) 1.40 (0.50-3.50) K/uL [place] # (Auto) 0.50 (0.00-1.00) K/uL Eos # (Auto) 0.00 (0.00-0.50) K/uL Baso # (Auto) 0.01 (0.00-0.20) K/uL Sodium 144 (136-145) mmol/L Potassium 3.7 (3.5-5.1) mmol/L Chloride 108 H (98-107) mmol/L Carbon Dioxide 29.5 (21.0-32.0) mmol/L BUN 23 H (7-18) mg/dL Creatinine 1.02 (0.51-1.17) mg/dL Est Cr Clr Drug Dosing 39.96 mL/min Estimated GFR (MDRD) > 60 mL/min Glucose 125 H (74-106) mg/dL Lactic Acid (0.4-2.0) mmol/L Calcium 8.8 (8.5-10.1) mg/dL Magnesium (1.8-2.4) mg/dL Total Bilirubin (0.2-1.0) mg/dL AST (15-37) U/L ALT (12-78) U/L Alkaline Phosphatase (46-116) IU/L Troponin I 0.106 H* (0.000-0.056) ng/mL Total Protein (6.4-8.2) g/dL Albumin (3.4-5.0) g/dL Amylase (25-115) U/L Lipase (73-393) U/L Specimen Type Urinvoid Urine Color Dark yellow Urine Appearance Slightly cloudy Urine pH 7.0 (5.0-9.0) Ur Specific [place] 1.015 (1.005-1.030) Urine Protein 100 H (NEGATIVE) mg/dL Urine Glucose (UA) Negative (NEGATIVE) mg/dL Urine Ketones Trace H (NEGATIVE) mg/dL Urine Occult Blood Large H (NEGATIVE) Urine Nitrite Negative (NEGATIVE) Urine Bilirubin Negative (NEGATIVE) Urine Urobilinogen 2.0 H (0.2-1.0) E.U./dL Ur Leukocyte Esterase Negative (NEGATIVE) U Hyaline Cast (Auto) Rare Urine RBC >100 H /HPF Urine WBC Not seen /HPF Urine Bacteria Not seen (NONE TO FEW) /HPF 03/24/20 Range/Units 07:30 WBC (4.0-10.2) K/uL RBC (4.33-5.41) M/uL Hgb (13.1-16.8) g/dL Hct (39.0-49.0) % MCV (84.0-98.0) fL MCH (28.2-33.3) pg MCHC (31.7-36.0) g/dL RDW (11.2-14.1) % Plt Count (150-350) K/uL Neut % (Auto) (45.0-80.0) % Lymph % (Auto) (10.0-50.0) % [place] % (Auto) (2.0-14.0) % Eos % (Auto) (0.0-5.0) % Baso % (Auto) (0.0-2.0) % Neut # (Auto) (1.40-7.00) K/uL Lymph # (Auto) (0.50-3.50) K/uL [place] # (Auto) (0.00-1.00) K/uL Eos # (Auto) (0.00-0.50) K/uL Baso # (Auto) (0.00-0.20) K/uL Sodium (136-145) mmol/L Potassium (3.5-5.1) mmol/L Chloride (98-107) mmol/L Carbon Dioxide (21.0-32.0) mmol/L BUN (7-18) mg/dL Creatinine (0.51-1.17) mg/dL Est Cr Clr Drug Dosing mL/min Estimated GFR (MDRD) mL/min Glucose (74-106) mg/dL Lactic Acid 0.7 (0.4-2.0) mmol/L Calcium (8.5-10.1) mg/dL Magnesium (1.8-2.4) mg/dL Total Bilirubin (0.2-1.0) mg/dL AST (15-37) U/L ALT (12-78) U/L Alkaline Phosphatase (46-116) IU/L Troponin I (0.000-0.056) ng/mL Total Protein (6.4-8.2) g/dL Albumin (3.4-5.0) g/dL Amylase (25-115) U/L Lipase (73-393) U/L Specimen Type Urine Color Urine Appearance Urine pH (5.0-9.0) Ur Specific [place] (1.005-1.030) Urine Protein (NEGATIVE) mg/dL Urine Glucose (UA) (NEGATIVE) mg/dL Urine Ketones (NEGATIVE) mg/dL Urine Occult Blood (NEGATIVE) Urine Nitrite (NEGATIVE) Urine Bilirubin (NEGATIVE) Urine Urobilinogen (0.2-1.0) E.U./dL Ur Leukocyte Esterase (NEGATIVE) U Hyaline Cast (Auto) Urine RBC /HPF Urine WBC /HPF Urine Bacteria (NONE TO FEW) /HPF Med Orders - Current: Current Medications Acetaminophen (Tylenol Extra Strength) 1,000 mg PO TID PRN PRN Reason: Pain Hydrocodone Bitart/Acetaminophen ([place] 325-5 Mg) 1 tab PO BID [facility] Last Admin: 03/24/20 07:32 Dose: 1 tab Documented by: Hydrocodone Bitart/Acetaminophen ([place] 325-5 Mg) 1 tab PO Q6HR PRN PRN Reason: Pain Apixaban (Eliquis) 2.5 mg PO BID [facility] Last Admin: 03/24/20 07:31 Dose: 2.5 mg Documented by: Docusate Sodium (Colace) 100 mg PO BID [facility] Last Admin: 03/24/20 07:32 Dose: 100 mg Documented by: Finasteride (Proscar) 5 mg PO DAILY@1700 [facility] Gabapentin (Neurontin) 100 mg PO DAILY [facility] Last Admin: 03/24/20 07:32 Dose: 100 mg Documented by: Sodium Chloride (Normal Saline) 1,000 mls @ 75 mls/hr IV ASDIRECTED [facility] Last Admin: 03/24/20 06:01 Dose: 75 mls/hr Documented by: Mirtazapine (Remeron) 15 mg PO DAILY [facility] Last Admin: 03/24/20 07:32 Dose: 15 mg Documented by: Non-Formulary Medication (Buprenorphine [Butrans]) 1 each TD WEEKLY [facility] Non-Formulary Medication (Diclofenac/Kinesiology Tape [Diclo Gel 1%-Xrylix Sheet Kit]) 1 each TP ASDIRECTED PRN PRN Reason: Pain Non-Formulary Medication (Propylene Glycol/Peg 400/Pf [Systane 0.3-0.4% Eye Drop]) 1 each EYEBOTH TID [facility] Ondansetron HCl (Zofran) 4 mg IVPUSH Q6H PRN PRN Reason: Nausea/Vomiting Pantoprazole Sodium (Protonix Iv) 40 mg IVPUSH Q24H [facility] Last Admin: 03/23/20 21:47 Dose: 40 mg Documented by: Sertraline HCl (Zoloft) 100 mg PO DAILY [facility] Last Admin: 03/24/20 07:31 Dose: 100 mg Documented by: Sodium Chloride (Saline Flush) 10 ml FLUSH ASDIRECTED PRN PRN Reason: Keep Vein Open Last Admin: 03/23/20 19:40 Dose: 10 ml Documented by: Tamsulosin HCl (Flomax) 0.8 mg PO DAILY@1700 [facility] Tiotropium [place] (Spiriva [place]) 18 mcg INH DAILY [facility] Last Admin: 03/24/20 07:33 Dose: 1 inhalation Documented by: Discontinued Medications Diltiazem HCl (Cardizem Cd) 120 mg PO ONETIME ONE Stop: 03/23/20 20:44 Last Admin: 03/23/20 21:47 Dose: 120 mg Documented by: Sodium Chloride (Normal Saline) 1,000 mls @ 250 mls/hr IV .BOLUS ONE Stop: 03/23/20 22:01 Last Admin: 03/23/20 18:48 Dose: 250 mls/hr Documented by: Iopamidol (Isovue-300 (61%)) Confirm Administered Dose 100 ml .ROUTE .STK-MED ONE Stop: 03/23/20 18:02 Last Admin: 03/23/20 19:00 Dose: 100 ml Documented by: Magnesium Citrate (Citrate Of Magnesia) 296 ml PO ONETIME ONE Stop: 03/23/20 21:16 Last Admin: 03/23/20 21:47 Dose: 296 ml Documented by: Morphine Sulfate (Morphine) 2 mg IVPUSH ONETIME ONE Stop: 03/23/20 18:02 Last Admin: 03/23/20 18:43 Dose: 2 mg Documented by: Morphine Sulfate (Morphine) 4 mg IVPUSH ONETIME ONE Stop: 03/23/20 19:30 Last Admin: 03/23/20 19:38 Dose: 4 mg Documented by: Ondansetron HCl (Zofran) 4 mg IVPUSH ONETIME ONE Stop: 03/23/20 17:24 Last Admin: 03/23/20 17:26 Dose: 4 mg Documented by: #1 Interpretation EKG Date: 03/24/20 Time: 07:09 Rhythm: A-Fib Rate (Beats/Min): 95 [place]: LAD-Left [place] Deviation P-Wave: Absent QRS: Normal ST-T: Other (no obvious acute ST changes suggestive of acute ischemia) QT: Normal Comparison: NA - No Prior EKG
[2020-03-24] MEDS ORDERED: Finasteride 5 MG Tab PO SCH (17:00)
[2020-03-24] MEDS ORDERED: Tamsulosin 0.4 MG Cap.ER PO SCH (17:00)
== END 2020-03-24 10:35 ==
LOC: LL.ED 17:04 → LL.MS 20:14 → UNDOADMOB 20:14
PROVIDERS: ADMIT Emergency Medicine; ATTEND Family Medicine
DX: R10.31 Right lower quadrant pain (principal); R11.10 Vomiting, unspecified; K31.5 Obstruction of duodenum; K80.20 Calculus of gallbladder without cholecystitis without obstruction; J44.9 Chronic obstructive pulmonary disease, unspecified; I48.91 Unspecified atrial fibrillation; E78.00 Pure hypercholesterolemia, unspecified; E03.9 Hypothyroidism, unspecified; I73.9 Peripheral vascular disease, unspecified; K59.09 Other constipation; I72.9 Aneurysm of unspecified site; G89.29 Other chronic pain; M54.9 Dorsalgia, unspecified; K21.9 Gastro-esophageal reflux disease without esophagitis; Z79.899 Other long term (current) drug therapy; Z87.891 Personal history of nicotine dependence
CPT/HCPCS: 36415; 74022; 74177; 76705; 80048; 80053; 81001; 82150; 83605; 83690; 83735; 84484; 85025; 93005; 94640; 94761; 96374; 96375; 96376; 99285; A9270; C9113; J2270; J2405; J7030; Q9967; G0378